=== PATIENT | male | born 1935 | race Caucasian/White ===

== ENCOUNTER 2021-05-13 10:54 | Day surgery (SDC) | payer MEDICARE, BC ==
[2021-05-06 15:32] LABS: CLARITY,URINE CLOUDY (Clear); COLOR,URINE YELLOW (Yellow); GLUCOSE, URINE NEGATIVE (Neg); KETONES,URINE NEGATIVE (Neg); LEUKOCYTE ESTERASE ,URINE SMALL (Neg); NITRITES, URINE NEGATIVE (Neg); OCCULT BLOOD,URINE MODERATE (Neg); PROTEIN,URINE TRACE mg/dl (Neg); UROBILINOGEN,URINE 0.2 E.U/dL (0.2-1.0)
[2021-05-06 15:32] LABS: BASOPHILS # (AUTO) 0.1 X10'3 (0-0.2); BASOPHILS % (AUTO) 0.7 % (0-1); EOSINOPHILS # (AUTO) 0.3 X10'3 (0-0.9); EOSINOPHILS % (AUTO) 3.8 % (0-6); LYMPHOCYTES # (AUTO) 2.1 X10'3 (1.1-4.8); LYMPHOCYTES % (AUTO) 26.6 % (21-51); MEAN CORPUSCULAR VOLUME 97.1 FL (78-98); MEAN PLATELET VOLUME 8.3 FL (7.4-10.4); MONOCYTES # (AUTO) 0.7 X10'3 (0-0.9); MONOCYTES % (AUTO) 9.5 % (2-12); NEUTROPHILS # (AUTO) 4.6 X10'3 (1.8-7.7); NEUTROPHILS % (AUTO) 59.4 % (42-75); PRE OP HEMATOCRIT 35.8 % (42.0-52.0); PRE OP HEMOGLOBIN 12.2 g/dL (14.0-17.9); PRE OP PLATELET COUNT 263 X10'3 (140-440); RED BLOOD COUNT 3.69 X10'6 (4.70-6.10); RED CELL DISTRIBUTION WIDTH 13.7 % (11.5-14.5)
[2021-05-06 15:38] LABS: MUCUS STRANDS FEW /LPF (Neg); SQUAMOUS EPITHELIAL CELL,UR FEW /LPF (FEW); UA COLLECTION TYPE CLN CATCH MIDSTREAM
[2021-05-06 15:39] LABS: BACTERIA,URINE 1+ /HPF (Neg); RBC,URINE 50-100 /HPF (0-2); WBC,URINE 0-4 /HPF (0-4)
[2021-05-06 15:45] LABS: ALBUMIN 3.7 G/DL (3.4-5.0); ALBUMIN/GLOBULIN RATIO 1.1 (1.1-1.5); ALKALINE PHOSPHATASE 61 IU/L (46-116); BLOOD UREA NITROGEN 27 MG/DL (7-18); BUN/CREATININE RATIO 18.5 (5.4-32.0); CALCIUM 8.8 MG/DL (8.5-10.1); CHLORIDE 105 MMOL/L (99-107); CREATININE 1.46 MG/DL (0.60-1.10); PRE OP ALT 21 U/L (30-65); PRE OP ANION GAP 12 (8-16); PRE OP AST 15 U/L (10-37); PRE OP BILIRUB, TOTAL 0.2 MG/DL (0.0-1.0); PRE OP GLUCOSE 99 MG/DL (70-104); PRE OP POTASSIUM 3.7 MMOL/L (3.4-5.1); PRE OP SODIUM 144 MMOL/L (135-145); TOTAL CARBON DIOXIDE 27.1 MMOL/L (24-32); TOTAL PROTEIN 7.2 G/DL (6.4-8.2); eGFR 46 ML/MIN
[~2021-05-13] VITALS: Ht 180.3 cm; Wt 71.1 kg
[~2021-05-13 10:54] MED LIST: AMLO5TAB16 PO; FLO0.4C PO; LISI40TA13 PO; LOVA40TA2 PO; ceFAZolin 1,000 MG in NS 50ML IVPB IV ONE; famotidine 20mg tablet PO ONE; ringers solution, lacted 1,000 ML IV SCH
[2021-05-13 11:05] VITALS: BP 150/91
[2021-05-13] MEDS ORDERED: iohexol 300 MG/1 ML 50ml polymer ONE (12:11)
[2021-05-13] MEDS ORDERED: FENTANYL CITRATE/PF 50 MCG/1 ML VIAL ONE (13:07)
[2021-05-13] MEDS ORDERED: midazolam 1 mg/ML 2ml injection ONE (13:07)
[2021-05-13] MEDS ORDERED: CEPH250T PO (13:08)
[2021-05-13] MEDS ORDERED: LIDOcaine 2% (20mg/ml) 5ml vial ONE (13:10)
[2021-05-13] MEDS ORDERED: ondansetron/PF 4mg/2ml inj ONE (13:10)
[2021-05-13] MEDS ORDERED: dexamethasone sod phosphate 4mg/ml inj. ONE (13:10)
[2021-05-13] MEDS ORDERED: propofol inj 20 ML IV ONE (13:10)
[2021-05-13 13:51] VITALS: BP 152/87
--- NOTE | 2021-05-13 13:51 | NUR ---
Received from OR via [facility] , accompanied by Anesthesiologist MADELIEN and report given by Anesthesiolgist. PATIENT WITH 20G PIV IN RIGHT UE RUNNING LR AT 100. VSS. DENIES PAIN AT THIS TIME. VSS. WILL CONTINUE TO ASSESS. Addendum: 05/13/21 at 1358 by Adrian Ferguson RN, RN Amended: Links added.
[2021-05-13 14:00] VITALS: BP 144/79
[2021-05-13 14:10] VITALS: BP 142/77
[2021-05-13 14:20] VITALS: BP 132/79
[2021-05-13 14:30] VITALS: BP 146/78
[2021-05-13] MEDS ORDERED: CEPH500C2 PO (14:32)
--- NOTE | 2021-05-13 14:41 | NUR ---
ALL DISCHARGE CRITERIA HAS BEEN MET. VSS, PAIN AT A TOLERABLE LEVEL, ABLE TO SAFELY AMBULATE AND TRANSFER SELF. IV TAKEN OUT WITHOUT ANY COMPLICATIONS. ALL DISCHARGE INSTRUCTIONS COVERED WITH PATIENT AND ALL QUESTIONS ANSWERED. PATIENT TAKEN OUT VIA WHEELCHAIR TO PERSONAL VEHICLE WHERE FAMILY/FRIEND DROVE PATIENT HOME. GAVE ALL DC INSTRUCTIONS TO AND TO PATIENT. ALL QUESTIONS ANSWERED. VSS. Addendum: 05/13/21 at 1455 by Adrian Ferguson RN, RN Amended: Links added.
== END 2021-05-13 14:41 | disposition home or self-care (01) ==
LOC: PAS 10:54
PROVIDERS: ATTEND Student in an Organized Health Care Education/Training Program
DX: N13.1 Hydronephrosis with ureteral stricture, not elsewhere classified (principal); I10 Essential (primary) hypertension; N40.1 Benign prostatic hyperplasia with lower urinary tract symptoms; Z79.899 Other long term (current) drug therapy; Z85.51 Personal history of malignant neoplasm of bladder; Z79.01 Long term (current) use of anticoagulants; Z87.891 Personal history of nicotine dependence; Z98.890 Other specified postprocedural states; Z20.822 Contact with and (suspected) exposure to COVID-19
CPT/HCPCS: 36415; 52332; 74420; 80053; 81001; 82948; 85025; 87088; 93005; C1758; C1769; C2617; J0690; J1100; J2250; J2405; J2704; J3010; J3490; J7030; J7120; Q9967; U0003; U0005; Z7506; Z7512; 76000; A4618; A6258